=== PATIENT | female | born 1970 | race Hispanic/Latino ===

== ENCOUNTER 2021-04-27 14:50 | Inpatient (IN) | payer SELFPAY ==
[~2021-04-27] VITALS: Ht 152.4 cm; Wt 92.5 kg
[2021-04-27 15:20] LABS: APPEARANCE,URINE Clear (CLEAR); BILIRUBIN,URINE Negative (NEGATIVE); COLOR,URINE Yellow (YELLOW); GLUCOSE, URINE (UA) Negative (NEGATIVE); KETONES,URINE Trace mg/dL (NEGATIVE); LEUKOCYTE ESTERASE ,URINE Negative (NEGATIVE); NITRATE,URINE Negative (NEGATIVE); OCCULT BLOOD,URINE Small (NEGATIVE); PH,URINE 5.5 (5.0-8.0); PROTEIN,URINE Negative (NEGATIVE)
[2021-04-27 15:23] VITALS: BP 170/85
[2021-04-27 15:28] LABS: BACTERIA,URINE Few /HPF (None Seen); MUCUS,URINE Few LPF (None Seen); SQUAMOUS EPITHELIAL CELL,UR Few /HPF (0-2); WBC,URINE 0-1 /HPF (0-1)
[2021-04-27] MEDS ORDERED: LIDOCAINE HCL 2% VISCOUS 15 ML UDCUP PO ONE (15:30)
[2021-04-27] MEDS ORDERED: FAMOTIDINE 20MG VIAL IV ONE (15:30)
[2021-04-27] MEDS ORDERED: MAG/ALUM/SIMETH 30 ML UDCUP PO ONE (15:30)
[2021-04-27 15:32] LABS: BASOPHILS % (AUTO) 0.5 % (0.0-5.0); EOSINOPHILS % (AUTO) 3.4 % (0.0-8.0); HEMATOCRIT 46.9 % (36-48); LYMPHOCYTES % (AUTO) 26.5 % (21.0-51.0); MEAN CORPUSCULAR HEMOGLOBIN 28.9 pg (27.0-33.0); MEAN CORPUSCULAR HGB CONC 32.6 g/dL (32.0-36.0); MEAN CORPUSCULAR VOLUME 88.5 fL (79-99); MONOCYTES % (AUTO) 5.3 % (3.0-13.0); NEUTROPHILS % (AUTO) 63.8 % (40.0-77.0); PLATELET COUNT (AUTO) 248 K/uL (130-400); RED CELL DISTRIBUTION WIDTH 13.2 % (11.0-15.5); WHITE BLOOD COUNT (AUTO) 8.6 K/uL (4.8-10.8)
[2021-04-27 15:42] LABS: CARBON DIOXIDE 29 mmol/L (21-32); CHLORIDE 104 mmol/L (101-111); GLOMERULAR FILTR. RATE CALC 62 mL/min (>60); GLUCOSE,RANDOM 105 mg/dL (70-105); INR 0.91 (0.85-1.15); POTASSIUM 3.4 mmol/L (3.5-5.1); SODIUM SERUM 144 mmol/L (136-145); UREA NITROGEN, BLOOD 13 mg/dL (7-18)
[2021-04-27 15:43] LABS: PARTIAL THROMBOPLASTIN TIME 27.3 SEC (26.3-35.5)
[2021-04-27 15:52] LABS: ALANINE AMINOTRANSFERASE 34 U/L (12-78); ALBUMIN 3.6 g/dL (3.5-5.0); ASPARTATE AMINOTRANSFERASE 22 U/L (10-37); BILIRUBIN,TOTAL 0.3 mg/dL (0.2-1.0); CREATINE KINASE, TOTAL 57 U/L (21-232); MYOGLOBIN 31 ng/mL (10-92); TOTAL PROTEIN, SERUM 7.4 g/dL (6.0-8.3); TROPONIN I < 0.04 ng/mL (0.00-0.06)
[2021-04-27 15:54] LABS: B-TYPE NATRIURETIC PEPTIDE 22 pg/mL (0-100)
[2021-04-27] MEDS ORDERED: ASPIRIN 325MG TAB PO ONE (16:00)
[2021-04-27] MEDS ORDERED: POTASSIUM BICARB/CIT AC 25 MEQ TABLET.EFF PO ONE (16:00)
[2021-04-27] MEDS ORDERED: NITROGLYCERIN 1GM OINT 1 INCH/1GM TD ONE (16:00)
[2021-04-27] MEDS: NITROGLYCERIN 0.4 MG SL TAB SL PRN ×2 (16:04→16:18)
[2021-04-27] MEDS ORDERED: ONDANSETRON 4MG INJ IVP PRN (17:00)
[2021-04-27] MEDS: ACETAMINOPHEN 325 MG TAB PO PRN (17:50)
[2021-04-27 17:55] VITALS: BP 165/80
[2021-04-27] MEDS ORDERED: LOSA50TA64 PO (18:03)
[2021-04-27] MEDS ORDERED: ATEN50TA PO (18:03)
[2021-04-27] MEDS ORDERED: GABA300C PO (18:03)
[2021-04-27 20:53] VITALS: BP 144/66
[2021-04-27] MEDS: INSULIN R PO SS1 SQ SCH (21:00)
[2021-04-27] MEDS: METOPROLOL TARTRATE 50 MG TAB PO SCH (21:46)
[2021-04-27 23:15] VITALS: BP 136/74
[2021-04-28] VITALS (7 sets, daily range): BP systolic 136–214; BP diastolic 76–95
[2021-04-28 00:12] LABS: CREATINE KINASE, TOTAL 47 U/L (21-232); MYOGLOBIN 21 ng/mL (10-92); TROPONIN I < 0.04 ng/mL (0.00-0.06)
[2021-04-28 07:08] LABS: BASOPHILS % (AUTO) 0.4 % (0.0-5.0); EOSINOPHILS % (AUTO) 2.1 % (0.0-8.0); HEMATOCRIT 41.5 % (36-48); LYMPHOCYTES % (AUTO) 15.6 % (21.0-51.0); MEAN CORPUSCULAR HGB CONC 33.3 g/dL (32.0-36.0); MEAN CORPUSCULAR VOLUME 87.2 fL (79-99); MONOCYTES % (AUTO) 5.8 % (3.0-13.0); NEUTROPHILS % (AUTO) 75.6 % (40.0-77.0); PLATELET COUNT (AUTO) 203 K/uL (130-400); RED BLOOD CELL COUNT(AUTO) 4.76 MIL/uL (4.00-5.50); RED CELL DISTRIBUTION WIDTH 13.1 % (11.0-15.5); WHITE BLOOD COUNT (AUTO) 11.5 K/uL (4.8-10.8)
[2021-04-28 07:27] LABS: ALANINE AMINOTRANSFERASE 30 U/L (12-78); ALBUMIN 3.2 g/dL (3.5-5.0); ASPARTATE AMINOTRANSFERASE 18 U/L (10-37); BILIRUBIN,TOTAL 0.2 mg/dL (0.2-1.0); CARBON DIOXIDE 30 mmol/L (21-32); CHLORIDE 109 mmol/L (101-111); CREATINE KINASE, TOTAL 46 U/L (21-232); GLOMERULAR FILTR. RATE CALC 62 mL/min (>60); GLUCOSE,RANDOM 117 mg/dL (70-105); MYOGLOBIN 26 ng/mL (10-92); SODIUM SERUM 145 mmol/L (136-145); TOTAL PROTEIN, SERUM 6.7 g/dL (6.0-8.3); TROPONIN I < 0.04 ng/mL (0.00-0.06); UREA NITROGEN, BLOOD 15 mg/dL (7-18)
[2021-04-28] MEDS: INSULIN R PO SS1 SQ SCH ×3 (07:30→16:30)
[2021-04-28] MEDS: ASPIRIN 81MG CHEW TAB PO SCH (09:06)
[2021-04-28] MEDS: METOPROLOL TARTRATE 50 MG TAB PO SCH ×2 (09:06→19:53)
[2021-04-28] MEDS: ENOXAPARIN SODIUM 40 MG/0.4 ML SYRINGE SQ SCH (09:06)
[2021-04-28] MEDS: ACETAMINOPHEN 325 MG TAB PO PRN (13:10)
[2021-04-28] MEDS ORDERED: LOSARTAN 50 MG TABLET PO SCH (14:00)
[2021-04-28] MEDS: PANTOPRAZOLE 40 MG TAB DR PO SCH (15:20)
[2021-04-28] MEDS: MORPHINE 2 MG SYG IVP PRN ×2 (15:23→21:59)
[2021-04-28] MEDS ORDERED: LOSARTAN 50 MG TABLET ONE (17:59)
[2021-04-28] MEDS: LOSARTAN 50 MG TABLET PO SCH ×2 (18:00→21:51)
[2021-04-29 04:16] VITALS: BP 171/79
[2021-04-29] MEDS: REGADENOSON 0.4 MG/5 ML PF SYG IVP SCH ×2 (08:00→09:29)
[2021-04-29] MEDS: ENOXAPARIN SODIUM 40 MG/0.4 ML SYRINGE SQ SCH (10:32)
[2021-04-29] MEDS: PANTOPRAZOLE 40 MG TAB DR PO SCH (10:32)
[2021-04-29] MEDS: ASPIRIN 81MG CHEW TAB PO SCH (10:32)
[2021-04-29] MEDS: METOPROLOL TARTRATE 50 MG TAB PO SCH ×2 (10:32→20:24)
[2021-04-29] MEDS: AMLODIPINE 5 MG TAB PO SCH (10:34)
[2021-04-29] MEDS: HYDROCHLOROTHIAZIDE 25 MG TABLET PO SCH (13:52)
[2021-04-29 16:00] VITALS: BP 161/90
[2021-04-29] MEDS ORDERED: TRAM50TA4 PO (18:30)
[2021-04-29] MEDS ORDERED: TRAMADOL HCL 50 MG TABLET PO PRN (18:30)
[2021-04-29 19:35] VITALS: BP 170/90
[2021-04-29] MEDS ORDERED: LOSARTAN 100 MG TABLET PO SCH (21:00)
[2021-04-29] MEDS ORDERED: GABAPENTIN 300 MG CAPSULE PO SCH (21:00)
[2021-04-29 23:23] VITALS: BP 135/75
[2021-04-30 04:21] VITALS: BP 165/74
[2021-04-30 04:25] LABS: POTASSIUM 3.9 mmol/L (3.5-5.1)
[2021-04-30 08:00] VITALS: BP 139/69
[2021-04-30] MEDS: HYDROCHLOROTHIAZIDE 25 MG TABLET PO SCH (08:48)
[2021-04-30] MEDS: ENOXAPARIN SODIUM 40 MG/0.4 ML SYRINGE SQ SCH (08:48)
[2021-04-30] MEDS: METOPROLOL TARTRATE 50 MG TAB PO SCH (08:48)
[2021-04-30] MEDS: PANTOPRAZOLE 40 MG TAB DR PO SCH (08:48)
[2021-04-30] MEDS: ASPIRIN 81MG CHEW TAB PO SCH (08:48)
[2021-04-30] MEDS: AMLODIPINE 5 MG TAB PO SCH (10:54)
[2021-04-30 12:00] VITALS: BP 134/73
== END 2021-04-30 17:30 | disposition home or self-care (01) | DRG 305 ==
LOC: EDH 14:50 → EDHIP 14:51 → OBSVTOIN 14:51 → 3AH 18:57
PROVIDERS: ADMIT Internal Medicine Infectious Disease; ATTEND Internal Medicine Infectious Disease
DX: I16.0 Hypertensive urgency (principal); E87.6 Hypokalemia; E78.5 Hyperlipidemia, unspecified; E66.9 Obesity, unspecified; I10 Essential (primary) hypertension; E11.9 Type 2 diabetes mellitus without complications; E78.00 Pure hypercholesterolemia, unspecified; R07.89 Other chest pain; Z87.891 Personal history of nicotine dependence; Z85.41 Personal history of malignant neoplasm of cervix uteri; Z90.710 Acquired absence of both cervix and uterus; Z90.49 Acquired absence of other specified parts of digestive tract; Z68.39 Body mass index [BMI] 39.0-39.9, adult
CPT/HCPCS: 36415; 71045; 78452; 80048; 80053; 81001; 82550; 82948; 83036; 83735; 83874; 83880; 84484; 85025; 85610; 85730; 93005; 93017; 93306; 93356; 96374; A9500; G0378; J1650; J2405; J2785; J3490

== ENCOUNTER 2023-08-02 15:45 | Emergency (ER) | payer BC ==
[~2023-08-02] VITALS: Ht 152.4 cm; Wt 93.4 kg
[~2023-08-02 15:45] MED LIST: ATEN50TA PO; GABA300C PO; LOSA50TA64 PO; TRAM50TA4 PO
[2023-08-02] MEDS ORDERED: KETOROLAC 30MG VIAL (30MG/ML) ONE (17:08)
[2023-08-02] MEDS ORDERED: KETOROLAC 30MG VIAL (30MG/ML) IM ONE (17:30)
[2023-08-02] MEDS ORDERED: IBUP-2077 PO (17:50)
[2023-08-02 17:56] VITALS: BP 142/68; PULSE 72; RESP 18; O2SAT 99
== END 2023-08-02 18:14 | disposition home or self-care (01) ==
LOC: EDH 15:45
DX: S82.831A Other fracture of upper and lower end of right fibula, initial encounter for closed fracture (principal); S93.491A Sprain of other ligament of right ankle, initial encounter; I10 Essential (primary) hypertension; Z79.899 Other long term (current) drug therapy; Z98.890 Other specified postprocedural states; Z90.710 Acquired absence of both cervix and uterus; X58.XXXA Exposure to other specified factors, initial encounter; Y93.89 Activity, other specified; Y92.89 Other specified places as the place of occurrence of the external cause; Y99.8 Other external cause status
CPT/HCPCS: 99284; 29515; 73610; 96372; J1885